=== PATIENT | female | born 1935 | race Caucasian/White ===

== ENCOUNTER → 2023-07-29 08:26 | Outpatient (REF) | payer MEDICARE, OTHER, SELFPAY | LOC: RAD 08:26 | PROVIDERS: ATTENDING PHYSICIAN Nurse Practitioner Family; FAMILY PHYSICIAN Family Medicine | DX: R13.10 Dysphagia, unspecified (principal) | CPT/HCPCS: 74246 ==

== ENCOUNTER → 2023-11-15 12:21 | Outpatient (REF) | payer MEDICARE, OTHER, SELFPAY ==
[2023-11-15 14:37] LABS: ALT (SGPT) 21 U/L (0-35); AST (SGOT) 27 U/L (14-36); Albumin 4.3 g/dl (3.5-5.0); Alkaline Phosphatase 96 U/L (38-126); Amylase 80 U/L (30-110); Blood Urea Nitrogen 18 mg/dl (7-17); Calcium 9.7 mg/dl (8.4-10.2); Carbon Dioxide 28 mmol/L (22-30); Chloride 105 mmol/L (98-107); Glucose 93 mg/dl (70-99); Lipase 108 U/L (23-300); Potassium 4.9 mmol/L (3.5-5.1); Sodium 139 mmol/L (135-145); Total Bilirubin 0.6 mg/dl (0.2-1.3); Total Protein 6.6 g/dl (6.3-8.2); eGFR > 60.00
== END ==
LOC: REG 12:21
PROVIDERS: ATTENDING PHYSICIAN Family Medicine; FAMILY PHYSICIAN Chiropractor
DX: M54.6 Pain in thoracic spine (principal); M79.18 Myalgia, other site; R10.12 Left upper quadrant pain
CPT/HCPCS: 36415; 72072; 80053; 82150; 83690

== ENCOUNTER → 2023-12-07 12:57 | Outpatient (REF) | payer MEDICARE, OTHER, SELFPAY | LOC: RAD 12:57 | PROVIDERS: ATTENDING PHYSICIAN Family Medicine | DX: M54.6 Pain in thoracic spine (principal); M79.18 Myalgia, other site; R10.12 Left upper quadrant pain | CPT/HCPCS: 76775 ==

== ENCOUNTER 2024-04-13 07:50 | Outpatient (RCR) | payer MEDICARE, OTHER, SELFPAY | END 2024-04-13 23:59 | disposition home or self-care (01) | LOC: RPT 07:50 | PROVIDERS: ATTENDING PHYSICIAN Nurse Practitioner Family | DX: M25.511 Pain in right shoulder (principal); M54.6 Pain in thoracic spine; Z73.6 Limitation of activities due to disability; M62.81 Muscle weakness (generalized) | CPT/HCPCS: 97010; 97110; 97140; 97162; 97535 ==

== ENCOUNTER → 2024-04-26 08:32 | Outpatient (REF) | payer MEDICARE, OTHER, SELFPAY ==
[2024-04-26 09:38] LABS: Urine Albumin Negative (Neg - Trace); Urine Bilirubin Negative (Negative); Urine Character Clear (Clear); Urine Color Yellow; Urine Glucose Negative (Negative); Urine Ketone Negative (Negative); Urine Leukocyte Negative (Negative); Urine Nitrite Negative (Negative); Urine Occult Blood 2+ (Negative); Urine Specific Gravity 1.025 (<1.030); Urine Urobilinogen Negative (Neg - 1+)
[2024-04-26 09:42] LABS: % Basophils 0.7 % (0-2); % Eosinophils 0.9 % (0-6); % Immature Granulocytes 0.3 % (0-0.5); % Lymphocytes 10.7 % (20.5-51.1); % Monocytes 7.3 % (1.7-9.3); % Neutrophils 80.1 % (42.2-75.2); Absolute Basophils 0.1 10^3/uL (0-0.2); Absolute Eosinophils 0.1 10^3/uL (0-0.7); Absolute Lymphocytes 0.7 10^3/uL (1.2-3.4); Absolute Monocytes 0.5 10^3/uL (0.1-0.6); Absolute Neutrophils 5.4 10^3/uL (1.4-6.5); Hematocrit 45.4 % (37.0-47.0); Hemoglobin 14.8 g/dL (12.0-16.0); Mean Corp Hgb Conc. 32.6 g/dL (33.0-37.0); Mean Corpuscular Hgb 31.1 pg (27.0-31.0); Mean Corpuscular Volume 95.4 fL (81.0-99.0); Mean Platelet Volume 9.6 fL (7.4-10.4); Nucleated Red Blood Cells % 0 %; Platelet Count 302 10^3/uL (130-400); Red Blood Cell Count 4.76 10^6/uL (4.20-5.40); Red Cell Dist. Width 12.9 % (11.5-14.5); White Blood Cell Count 6.7 10^3/uL (4.8-10.8)
[2024-04-26 10:47] LABS: Urine Squamous Cell 21-25 /LPF (Few); Urine Urothelial Cell 0-2 /LPF (FEW)
[2024-04-26 10:48] LABS: Urine Amorphous Seen; Urine White Cell 0-2 /HPF (0-5)
[2024-04-26 10:59] LABS: ALT (SGPT) 21 U/L (0-35); AST (SGOT) 23 U/L (14-36); Albumin 4.4 g/dl (3.5-5.0); Alkaline Phosphatase 94 U/L (38-126); Blood Urea Nitrogen 15 mg/dl (7-17); Calcium 9.2 mg/dl (8.4-10.2); Carbon Dioxide 31 mmol/L (22-30); Chloride 102 mmol/L (98-107); Glucose 104 mg/dl (70-99); HDL Cholesterol 62 mg/dl; LDL Cholesterol, Calculated 84 mg/dl; Sodium 140 mmol/L (135-145); Total Bilirubin 0.8 mg/dl (0.2-1.3); Total Cholesterol 176 mg/dl (50-199); Total Protein 6.7 g/dl (6.3-8.2); Triglyceride 152 mg/dl (10-149); Very Low Density Lipoprotein 30 mg/dl (0-30); eGFR > 60.00
[2024-04-26 13:11] LABS: TSH Reflex To Free T4 2.15 uIU/ml (0.47-4.68)
[2024-04-26 13:40] LABS: Folate > 20.0 ng/ml (2.76-20); Vitamin B12 385 pg/ml (239-931)
== END ==
LOC: REG 08:32
PROVIDERS: ATTENDING PHYSICIAN Nurse Practitioner Family; FAMILY PHYSICIAN Family Medicine
DX: F33.1 Major depressive disorder, recurrent, moderate (principal); I10 Essential (primary) hypertension; M79.18 Myalgia, other site; K22.2 Esophageal obstruction; Z87.19 Personal history of other diseases of the digestive system; G89.29 Other chronic pain; Z85.3 Personal history of malignant neoplasm of breast; Z01.89 Encounter for other specified special examinations; R41.3 Other amnesia; Z79.899 Other long term (current) drug therapy; D52.9 Folate deficiency anemia, unspecified
CPT/HCPCS: 36415; 80053; 80061; 81003; 81015; 82607; 82746; 84443; 85025

== ENCOUNTER 2024-05-15 08:57 | Outpatient (RCR) | payer MEDICARE, OTHER, SELFPAY | END 2024-05-15 10:08 | disposition home or self-care (01) | LOC: RPT 08:57 | PROVIDERS: ATTENDING PHYSICIAN Nurse Practitioner Family | DX: M25.511 Pain in right shoulder (principal); M54.6 Pain in thoracic spine; Z73.6 Limitation of activities due to disability; M62.81 Muscle weakness (generalized) | CPT/HCPCS: 97010; 97110; 97535 ==

== ENCOUNTER → 2024-07-25 10:44 | Outpatient (REF) | payer MEDICARE, OTHER, SELFPAY ==
[2024-07-25 11:57] LABS: HDL Cholesterol 60 mg/dl; LDL Cholesterol, Calculated 173 mg/dl; Total Cholesterol 264 mg/dl (50-199); Triglyceride 159 mg/dl (10-149); Very Low Density Lipoprotein 31 mg/dl (0-30)
== END ==
LOC: REG 10:44
PROVIDERS: ATTENDING PHYSICIAN Nurse Practitioner Family; FAMILY PHYSICIAN Family Medicine
DX: E78.2 Mixed hyperlipidemia (principal)
CPT/HCPCS: 36415; 80061

== ENCOUNTER → 2024-10-16 10:10 | Outpatient (REF) | payer MEDICARE, OTHER, SELFPAY ==
[2024-10-16 11:32] LABS: ALT (SGPT) 14 U/L (0-35); AST (SGOT) 18 U/L (14-36); Albumin 4.7 g/dl (3.5-5.0); Alkaline Phosphatase 78 U/L (38-126); Direct Bilirubin 0.1 mg/dl (0.0-0.4); HDL Cholesterol 53 mg/dl; Total Bilirubin 0.8 mg/dl (0.2-1.3); Total Cholesterol 161 mg/dl (50-199); Total Protein 6.9 g/dl (6.3-8.2)
[2024-10-16 12:41] LABS: LDL Cholesterol, Calculated 77 mg/dl; Triglyceride 156 mg/dl (10-149); Very Low Density Lipoprotein 31 mg/dl (0-30)
== END ==
LOC: REG 10:10
PROVIDERS: ATTENDING PHYSICIAN Internal Medicine Cardiovascular Disease; FAMILY PHYSICIAN Family Medicine
DX: E78.5 Hyperlipidemia, unspecified (principal); I10 Essential (primary) hypertension
CPT/HCPCS: 36415; 80061; 80076

== ENCOUNTER → 2025-03-07 08:12 | Outpatient (REF) | payer MEDICARE, OTHER, SELFPAY ==
[2025-03-07 09:10] LABS: Hematocrit 45.3 % (37.0-47.0); Hemoglobin 14.3 g/dL (12.0-16.0); Mean Corp Hgb Conc. 31.6 g/dL (33.0-37.0); Mean Corpuscular Volume 96.2 fL (81.0-99.0); Nucleated Red Blood Cells % 0 %; Platelet Count 322 10^3/uL (130-400); Red Cell Dist. Width 13.2 % (11.5-14.5)
[2025-03-07 09:39] LABS: Vitamin D, 25-OH*** 48.0 ng/mL (30-80)
[2025-03-07 09:42] LABS: ALT (SGPT) 15 U/L (0-35); AST (SGOT) 18 U/L (14-36); Albumin 4.4 g/dl (3.5-5.0); Alkaline Phosphatase 81 U/L (38-126); Blood Urea Nitrogen 14 mg/dl (7-17); Calcium 9.4 mg/dl (8.4-10.2); Carbon Dioxide 27 mmol/L (22-30); Chloride 104 mmol/L (98-107); Glucose 97 mg/dl (70-99); HDL Cholesterol 56 mg/dl; LDL Cholesterol, Calculated 69 mg/dl; Potassium 3.8 mmol/L (3.5-5.1); Sodium 138 mmol/L (135-145); Total Protein 7.0 g/dl (6.3-8.2); Very Low Density Lipoprotein 29 mg/dl (0-30); eGFR > 60.00
[2025-03-07 09:57] LABS: Urine Character Clear (Clear)
[2025-03-07 10:25] LABS: Urine Squamous Cell 16-20 /LPF (Few); Urine Urothelial Cell 0-2 /LPF (FEW)
[2025-03-07 10:27] LABS: Urine White Cell 0-2 /HPF (0-5)
== END ==
LOC: REG 08:12
PROVIDERS: ATTENDING PHYSICIAN Nurse Practitioner Family; FAMILY PHYSICIAN Family Medicine
DX: M25.511 Pain in right shoulder (principal); Z23 Encounter for immunization; R13.10 Dysphagia, unspecified; F32.1 Major depressive disorder, single episode, moderate; M79.10 Myalgia, unspecified site; I10 Essential (primary) hypertension; F33.1 Major depressive disorder, recurrent, moderate; M79.18 Myalgia, other site; K22.2 Esophageal obstruction; Z87.19 Personal history of other diseases of the digestive system; G89.29 Other chronic pain; Z85.3 Personal history of malignant neoplasm of breast; R41.3 Other amnesia; E78.2 Mixed hyperlipidemia; M81.0 Age-related osteoporosis without current pathological fracture
CPT/HCPCS: 36415; 80053; 80061; 81003; 81015; 82306; 84443; 85025; 87086